=== PATIENT | male | born 1990 | race American Indian/Alaskan Native ===

== ENCOUNTER 2021-11-10 04:53 | Emergency (ER) | payer MEDICAID ==
[2021-11-10] MEDS ORDERED: LORazepam 2 MG/ML VIAL IM PRN (05:09)
[2021-11-10] MEDS ORDERED: HALOPERIDOL LACTATE 5 MG/1 ML INJ IM PRN (05:09)
--- NOTE | 2021-11-10 05:12 | Event Note ---
Date: 11/10/21 EMS documentation not available at time of chart dictation Verbal report received from EMS Medical screening examination note: 31-year-old gentleman with a history of catatonia and psychiatric disease, brought to the hospital by EMS with an EMS articulated complaint of catatonia. EMS reports that patient was on the toilet, awake, moving 4 extremities, but not responding, and that family called because they felt that the patient's psychiatric disease is worsening. EMS reported that family stated "I cannot deal with it anymore." Patient has previously been at [facility], but family did not want this patient to go to [facility]. The patient is awake, moving 4 extremities, and appears disorganized. Patient placed on hold status, trial of Ativan for catatonia, screening laboratory studies ordered, mental health consultation requested. Detailed history and physical to be performed by oncoming ER provider.
[2021-11-10 05:44] LABS: Hematocrit 46.7 % (35.5-45.6); Hemoglobin 15.2 gm/dl (11.8-15.2); Mean Corpuscular HGB Conc 33 % (32-34); Mean Corpuscular Volume 91 fl (84-94); Platelet Count 258 K/mm3 (140-440); Red Blood Count 5.14 M/mm3 (3.65-5.03); Red Cell Distribution Width 15.7 % (13.2-15.2)
[2021-11-10 06:15] LABS: BUN/Creatinine Ratio 20; Blood Urea Nitrogen 20 mg/dL (9-20); Calcium 9.5 mg/dL (8.4-10.2); Hemolysis Index 8
--- NOTE | 2021-11-10 06:20 | Emergency Department Report ---
ED Psych HPI - General Chief Complaint: Altered Mental Status Stated Complaint: CATATONIA, CHRONIC Time Seen by Provider: 11/10/21 06:02 Source: EMS Mode of arrival: Stretcher - History of Present Illness Initial Comments: Chief complaint: Abnormal behavior HPI: History obtained from my colleague's documentation screening note. This is a 31-year-old gentleman with history of catatonia and mental health disorder who was brought to EMS with reported catatonia. EMS reports that patient was on toilet awake moving all 4 extremities but not responding. Family called because they felt that the patient's mental state is worsening. Family member stated, "I cannot deal with it anymore". This gentleman has been previously evaluated and treated at [facility]. Family did not want this patient to return back to [facility] for evaluation. MD Complaint: altered mental status -: unknown Associated Psychiatric Symptoms: racing thoughts, auditory hallucinations History of same: Yes Quality: constant Improves With: none Worsens With: none Treatments Prior to Arrival: other (EMS transfer previous evaluation at outside hospital) - Related Data Allergies Allergy/AdvReac Type Severity Reaction Status Date / Time No Known Allergies Allergy Verified 11/10/21 09:26 ED Review of Systems ROS: Stated complaint: CATATONIA, CHRONIC Other details as noted in HPI Comment: Unobtainable due to pts medical conditions (Altered mental status) ED Past Medical Hx - Past Medical History Previous Medical History?: Yes Hx Psychiatric Treatment: Yes - Surgical History Additional Surgical History: Unable to obtain - Social History Smoking Status: Unknown if ever smoked Substance Use Type: Other (Unable to obtain) ED Physical Exam - General Limitations: Altered Mental Status General appearance: alert, in no apparent distress, other (Poor eye contact, responding to internal stimuli, continuous mumbling, moves all 4 extremities) - Head Head exam: Present: atraumatic, normocephalic - Eye Eye exam: Present: normal appearance - ENT ENT exam: Present: mucous membranes moist - Neck Neck exam: Present: normal inspection, full ROM - Respiratory Respiratory exam: Present: normal lung sounds bilaterally. Absent: respiratory distress, wheezes, rales, rhonchi - Cardiovascular Cardiovascular Exam: Present: regular rate, normal rhythm, normal heart sounds. Absent: systolic murmur, diastolic murmur, rubs, gallop - GI/Abdominal GI/Abdominal exam: Present: soft, normal bowel sounds. Absent: distended, tenderness, guarding, rebound - Rectal Rectal exam: Present: deferred - Extremities Exam Extremities exam: Present: normal inspection - Neurological Exam Neurological exam: Present: altered - Psychiatric Psychiatric exam: Present: other (Responding to internal stimuli, constant mumbling speech) - Skin Skin exam: Present: warm, dry, intact, normal color. Absent: rash ED Course Vital Signs 11/10/21 11/10/21 11/10/21 06:26 09:26 19:59 Temperature 97.5 F L 98.2 F Pulse Rate 107 H 68 68 Respiratory 21 18 18 Rate Blood Pressure 135/85 110/66 [Left] O2 Sat by Pulse 98 97 100 Oximetry 11/10/21 11/11/21 11/11/21 20:00 08:14 13:30 Temperature 98.5 F Pulse Rate 60 Respiratory 18 Rate Blood Pressure 120/83 [Left] O2 Sat by Pulse 100 97 99 Oximetry ED Medical Decision Making - Lab Data Result diagrams: 11/10/21 05:19 11/10/21 05:19 - Medical Decision Making Acute psychosis, patient is medically clear for psychiatric care. 1013 form completed. ED hold order in place. Awaiting treatment recommendations by psych iatric team. CBC chemistry TSH magnesium all within normal limits. Alcohol, acetaminophen, salicylate levels negative. Patient is transferred to [facility] today 11/11/2021 Critical care attestation.: If time is entered above; I have spent that time in minutes in the direct care of this critically ill patient, excluding procedure time. ED Disposition Clinical Impression: Acute psychosis Disposition: [address] [place] [address] Is pt being admited?: Yes Does the pt Need Aspirin: No Condition: Stable
--- NOTE | 2021-11-10 09:23 | Consultation ---
History of Present Illness - Reason for Consult Consult date: 11/10/21 Reason for consult: psychosis - History of Present Psychiatric Illness The patient was seen today. He is responding to internal stimuli. He doesn't acknowledge my presence. He is just staring and pointing as if he's talking to someone. PAST PSYCHIATRIC HISTORY: Unable to assess PAST MEDICAL HISTOtRY: unknown Family Psychiatric History: None reported or documented SOCIAL HISTORY Unable to assess REVIEW OF SYSTEMS unable to assess MENTAL STATUS EXAMINATION unable to assess Assessment (1) Acute Psychosis Treatment Plan 1013 Lorazepam 2mg IM x 1 to r/o catatonia Mirtazepin 7.5mg po qhs Medical: per primary Disposition: recommend acute psychiatric inpatient treatment Will follow. Thanks Case staffed with Dr. Gunter Medications and Allergies Allergies Allergy/AdvReac Type Severity Reaction Status Date / Time No Known Allergies Allergy Verified 11/10/21 05:00 Active Meds: Active Medications Haloperidol Lactate (Haloperidol Lactate 5 Mg/1 Ml Inj) 5 mg IM Q6HR PRN PRN Reason: Agitation Lorazepam (Lorazepam 2 Mg/Ml Vial) 2 mg IM Q4HR PRN PRN Reason: Agitation Mental Status Exam - Vital signs Last Vital Signs Temp Pulse 107 H 11/10/21 06:26 Resp 21 11/10/21 06:26 BP Pulse Ox 98 11/10/21 06:26 Results Result Diagrams: 11/10/21 05:19 11/10/21 05:19 Abnormal lab results 11/10/21 11/10/21 11/10/21 Range/Units 05:19 05:19 05:19 RBC 5.14 H (3.65-5.03) M/mm3 Hct 46.7 H (35.5-45.6) % RDW 15.7 H (13.2-15.2) % Salicylates < 0.3 L (2.8-20.0) mg/dL Acetaminophen 5.0 L (10.0-30.0) ug/mL All other labs normal.
[2021-11-10] MEDS ORDERED: LORazepam 2 MG/ML VIAL IM ONE (09:26)
[2021-11-10] MEDS ORDERED: MIRTAZAPINE 15 MG TAB PO SCH (22:00)
[2021-11-10] MEDS ORDERED: ALBUTEROL 8.5 GM MDI INHALATION IH PRN (23:03)
--- NOTE | 2021-11-10 23:05 | Event Note ---
Date: 11/11/21 Nursing team has asked that I evaluate the patient secondary to cough. Patient had a negative Covid test. He is saturating well on room air. He is in no acute respiratory distress. He is not stridulous. He also has bloodshot eyes. X-ray of the chest is unremarkable. As needed cough medications ordered. Patient protecting airway at this time. Viral syndrome versus Valsalva versus bronchitis Does not appear to have an immediate medical contraindication at this time for psychiatric disposition. CHEST 2 VIEWS INDICATION / CLINICAL INFORMATION: cough. COMPARISON: None available. FINDINGS: SUPPORT DEVICES: None. HEART / MEDIASTINUM: No significant abnormality. LUNGS / PLEURA: No significant pulmonary abnormality. No significant pleural effusion. No pneumothorax. ADDITIONAL FINDINGS: No significant additional findings. IMPRESSION: 1. No acute abnormality of the chest. Signer Name: Kenyon Padilla MD Signed: 11/10/2021 11:22 PM Workstation Name: [id number] Vital Signs 11/10/21 11/10/21 11/10/21 06:26 09:26 19:59 Temperature 97.5 F L 98.2 F Pulse Rate 107 H 68 68 Respiratory 21 18 18 Rate Blood Pressure 135/85 110/66 [Left] O2 Sat by Pulse 98 97 100 Oximetry 11/10/21 20:00 Temperature Pulse Rate Respiratory Rate Blood Pressure [Left] O2 Sat by Pulse 100 Oximetry Lab Results 11/10/21 11/10/21 11/10/21 Range/Units 05:19 05:19 05:19 WBC (4.5-11.0) K/mm3 RBC (3.65-5.03) M/mm3 Hgb (11.8-15.2) gm/dl Hct (35.5-45.6) % MCV (84-94) fl MCH (28-32) pg MCHC (32-34) % RDW (13.2-15.2) % Plt Count (140-440) K/mm3 Sodium 143 (137-145) mmol/L Potassium 4.0 (3.6-5.0) mmol/L Chloride 106.3 (98-107) mmol/L Carbon Dioxide 23 (22-30) mmol/L Anion Gap 18 mmol/L BUN 20 (9-20) mg/dL Creatinine 1.0 (0.8-1.3) mg/dL Estimated GFR > 60 ml/min BUN/Creatinine Ratio 20 % Glucose 99 (75-100) mg/dL Calcium 9.5 (8.4-10.2) mg/dL Magnesium (1.7-2.3) mg/dL TSH 1.840 (0.270-4.200) mlU/mL Salicylates < 0.3 L (2.8-20.0) mg/dL Acetaminophen (10.0-30.0) ug/mL Plasma/Serum Alcohol (0-0.07) % Coronavirus (PCR) (Negative) 11/10/21 11/10/21 11/10/21 Range/Units 05:19 05:19 05:19 WBC 9.7 (4.5-11.0) K/mm3 RBC 5.14 H (3.65-5.03) M/mm3 Hgb 15.2 (11.8-15.2) gm/dl Hct 46.7 H (35.5-45.6) % MCV 91 (84-94) fl MCH 30 (28-32) pg MCHC 33 (32-34) % RDW 15.7 H (13.2-15.2) % Plt Count 258 (140-440) K/mm3 Sodium (137-145) mmol/L Potassium (3.6-5.0) mmol/L Chloride (98-107) mmol/L Carbon Dioxide (22-30) mmol/L Anion Gap mmol/L BUN (9-20) mg/dL Creatinine (0.8-1.3) mg/dL Estimated GFR ml/min BUN/Creatinine Ratio % Glucose (75-100) mg/dL Calcium (8.4-10.2) mg/dL Magnesium (1.7-2.3) mg/dL TSH (0.270-4.200) mlU/mL Salicylates (2.8-20.0) mg/dL Acetaminophen 5.0 L (10.0-30.0) ug/mL Plasma/Serum Alcohol < 0.01 (0-0.07) % Coronavirus (PCR) (Negative) 11/10/21 11/10/21 Range/Units 05:19 10:16 WBC (4.5-11.0) K/mm3 RBC (3.65-5.03) M/mm3 Hgb (11.8-15.2) gm/dl Hct (35.5-45.6) % MCV (84-94) fl MCH (28-32) pg MCHC (32-34) % RDW (13.2-15.2) % Plt Count (140-440) K/mm3 Sodium (137-145) mmol/L Potassium (3.6-5.0) mmol/L Chloride (98-107) mmol/L Carbon Dioxide (22-30) mmol/L Anion Gap mmol/L BUN (9-20) mg/dL Creatinine (0.8-1.3) mg/dL Estimated GFR ml/min BUN/Creatinine Ratio % Glucose (75-100) mg/dL Calcium (8.4-10.2) mg/dL Magnesium 2.20 (1.7-2.3) mg/dL TSH (0.270-4.200) mlU/mL Salicylates (2.8-20.0) mg/dL Acetaminophen (10.0-30.0) ug/mL Plasma/Serum Alcohol (0-0.07) % Coronavirus (PCR) Negative (Negative)
--- NOTE | 2021-11-11 00:27 | XRay Report ---
CHEST 2 VIEWS INDICATION / CLINICAL INFORMATION: cough. COMPARISON: None available. FINDINGS: SUPPORT DEVICES: None. HEART / MEDIASTINUM: No significant abnormality. LUNGS / PLEURA: No significant pulmonary abnormality. No significant pleural effusion. No pneumothora x. ADDITIONAL FINDINGS: No significant additional findings. IMPRESSION: 1. No acute abnormality of the chest. Signer Name: Kenyon Padilla MD Signed: 11/11/2021 12:22 AM Workstation Name: [id number]
[2021-11-11] MEDS ORDERED: BENZONATATE 100 MG CAP PO SCH (06:00)
--- NOTE | 2021-11-11 11:24 | Progress Note ---
Subjective - Reason for Consult Consult date: 11/11/21 Reason for consult: psychosis - Chief Complaint Chief complaint: The patient was seen today. He is more with it today, but still disorganized. The patient says "I'm alright" when asked, but appears to be out of it and preoccupied. He kept his head turned in one direction, staring. The patient appears to be responding to internal stimuli, although he denies hallucinations. He would not engage in the evaluation. He kept staring in one direction shaking his head over and over. I asked him was he feeling depressed or suicidal, the patient would not respond. REVIEW OF SYSTEMS unable to assess MENTAL STATUS EXAMINATION unable to assess Assessment (1) Acute Psychosis Treatment Plan 1013 Lorazepam 2mg IM x 1 to r/o catatonia Mirtazepin 7.5mg po qhs Start Olanzapine 5mg po daily Start Lorazepam 0.5mg po BID Medical: per primary Disposition: recommend acute psychiatric inpatient treatment Will follow. Thanks Case staffed with Dr. Gunter Mental Status Exam - Vital signs Last Vital Signs Temp 98.2 F 11/10/21 19:59 Pulse 68 11/10/21 19:59 Resp 18 11/10/21 19:59 BP 110/66 11/10/21 19:59 Pulse Ox 97 11/11/21 08:14
--- NOTE | 2021-11-11 11:46 | Emergency Department Report ---
Blank Doc - Documentation Documentation: 31-year-old male on 1013 for acute psychosis. UA and UDS collection is still pending P.o. psych meds prescribed by psych Patient awaiting acceptance
[2021-11-11 13:31] VITALS: BP 120/83
[2021-11-11] MEDS ORDERED: LORazepam 0.5 MG TAB PO SCH (22:00)
== END 2021-11-11 15:30 ==
LOC: ED 04:53
DX: F23 Brief psychotic disorder (principal); Z20.822 Contact with and (suspected) exposure to COVID-19
CPT/HCPCS: 36415; 71046; 80048; 83735; 84443; 85027; 96372; 99284; J2060; U0003; 80320; G0480

== ENCOUNTER 2021-12-17 13:28 | Emergency (ER) | payer BC ==
[2021-12-17] MEDS ORDERED: LORazepam 2 MG/ML VIAL IV ONE (15:40)
--- NOTE | 2021-12-17 15:47 | Emergency Department Report ---
HPI - HPI HPI: Room 10 Patient is a 31-year-old male present with a chief complaint of seizure. The patient was reportedly recently discharged from [facility] and upon release he called 911 stating he had just had a seizure. In the ED the patient does not answer questions. The patient will moan with a sternal rub but does not follow commands. Patient has history of catatonia <HEIDI HORN - Last Filed: 12/17/21 19:20> <LJ CHAVARRIA - Last Filed: 12/18/21 17:17> - General Chief Complaint: Psych Time Seen by Provider: 12/17/21 15:32 ED Past Medical Hx - Past Medical History Hx Psychiatric Treatment: Yes Additional medical history: Schizoaffective disorder, Recurrent catatonia - Surgical History Past Surgical History?: No Additional Surgical History: Unable to obtain - Family History Family history: no significant - Social History Smoking Status: Unknown if ever smoked Substance Use Type: Other (Unable to obtain) <HEIDI HORN - Last Filed: 12/17/21 19:20> <LJ CHAVARRIA - Last Filed: 12/18/21 17:17> - Medications Home Medications: Home Medications Medication Instructions Recorded Confirmed Last Taken Type Divalproex Dr [Depakote Dr] 500 mg PO BID 12/01/21 12/01/21 Unknown History risperiDONE [RisperDAL] 2 mg PO BID 12/01/21 12/01/21 Unknown History ED Review of Systems ROS: Stated complaint: PSYCHIATRIC EPISODE Other details as noted in HPI Comment: Unobtainable due to pts medical conditions <HEIDI HORN - Last Filed: 12/17/21 19:20> ROS: Stated complaint: PSYCHIATRIC EPISODE Other details as noted in HPI <LJ CHAVARRIA - Last Filed: 12/18/21 17:17> Physical Exam - Physical Exam Vital Signs: Vital Signs 12/17/21 12/17/21 12/17/21 16:24 16:25 17:37 Temperature 98.0 F 97.8 F Pulse Rate 81 79 Respiratory 17 17 16 Rate Blood Pressure 139/77 126/72 [Left] O2 Sat by Pulse 100 100 97 Oximetry Physical Exam: GENERAL: The patient is well-developed well-nourished male lying on stretcher not responding to verbal stimuli. [] HEENT: Normocephalic. Atraumatic. NECK: Supple. Trachea midline CHEST/LUNGS: Clear to auscultation. There is no respiratory distress noted. HEART/CARDIOVASCULAR: Regular. There is no tachycardia. There is no gallop rub or murmur. ABDOMEN: Abdomen is soft, nontender. Patient has normal bowel sounds. There is no abdominal distention. SKIN: There is no rash. There is no edema. There is no diaphoresis. NEURO: The patient is lying in left lateral decubitus position not responding to verbal stimuli. Upon sternal rub patient moans and localizes but does not speak. MUSCULOSKELETAL: There is no evidence of acute injury. <HEIDI HORN - Last Filed: 12/17/21 19:20> - Physical Exam Vital Signs: Vital Signs 12/17/21 12/17/21 12/17/21 16:24 16:25 17:37 Temperature 98.0 F 97.8 F Pulse Rate 81 79 Respiratory 17 17 16 Rate Blood Pressure 139/77 126/72 [Left] O2 Sat by Pulse 100 100 97 Oximetry <LJ CHAVARRIA - Last Filed: 12/18/21 17:17> ED Course Vital Signs 12/17/21 12/17/21 12/17/21 16:24 16:25 17:37 Temperature 98.0 F 97.8 F Pulse Rate 81 79 Respiratory 17 17 16 Rate Blood Pressure 139/77 126/72 [Left] O2 Sat by Pulse 100 100 97 Oximetry - Reevaluation(s) Reevaluation #1: 12/18/21 17:16 was assessed by psych, recommend OP management , vss no distress no SI or HI <LJ CHAVARRIA - Last Filed: 12/18/21 17:17> ED Medical Decision Making - Lab Data Result diagrams: 12/17/21 16:57 12/17/21 16:57 Laboratory Tests 12/17/21 12/17/21 12/17/21 16:57 16:57 16:57 WBC 6.1 RBC 4.93 Hgb 14.5 Hct 44.8 MCV 91 MCH 29 MCHC 32 RDW 15.5 H Plt Count 319 Lymph % (Auto) 45.6 H [place] % (Auto) 8.6 H Eos % (Auto) 3.0 Baso % (Auto) 1.1 Lymph # (Auto) 2.8 [place] # (Auto) 0.5 Eos # (Auto) 0.2 Baso # (Auto) 0.1 Seg Neutrophils % 41.7 Seg Neutrophils # 2.5 Sodium 143 Potassium 4.3 Chloride 104.1 Carbon Dioxide 24 Anion Gap 19 BUN 10 Creatinine 1.1 Estimated GFR > 60 BUN/Creatinine Ratio 9 Glucose 73 L Calcium 9.4 Urine Color Urine Turbidity Urine pH Ur Specific [place] Urine Protein Urine Glucose (UA) Urine Ketones Urine Blood Urine Nitrite Ur Reducing Substances Urine Bilirubin Urine Ictotest Urine Urobilinogen Ur Leukocyte Esterase Urine WBC (Auto) Urine RBC (Auto) Salicylates < 0.3 L Urine Opiates Screen Urine Methadone Screen Acetaminophen Valproic Acid < 2.8 L Ur Phencyclidine Scrn Ur Amphetamines Screen U Benzodiazepines Scrn Urine Cocaine Screen Plasma/Serum Alcohol 12/17/21 12/17/21 12/17/21 16:57 16:57 17:31 WBC RBC Hgb Hct MCV MCH MCHC RDW Plt Count Lymph % (Auto) [place] % (Auto) Eos % (Auto) Baso % (Auto) Lymph # (Auto) [place] # (Auto) Eos # (Auto) Baso # (Auto) Seg Neutrophils % Seg Neutrophils # Sodium Potassium Chloride Carbon Dioxide Anion Gap BUN Creatinine Estimated GFR BUN/Creatinine Ratio Glucose Calcium Urine Color Yellow Urine Turbidity Clear Urine pH 5.0 Ur Specific [place] 1.021 Urine Protein <15 mg/dl Urine Glucose (UA) Neg Urine Ketones Neg Urine Blood Neg Urine Nitrite Neg Ur Reducing Substances Not Reportable Urine Bilirubin Neg Urine Ictotest Not Reportable Urine Urobilinogen < 2.0 Ur Leukocyte Esterase Neg Urine WBC (Auto) < 1.0 Urine RBC (Auto) < 1.0 Salicylates Urine Opiates Screen Urine Methadone Screen Acetaminophen 5.0 L Valproic Acid Ur Phencyclidine Scrn Ur Amphetamines Screen U Benzodiazepines Scrn Urine Cocaine Screen Plasma/Serum Alcohol < 0.01 12/17/21 17:31 WBC RBC Hgb Hct MCV MCH MCHC RDW Plt Count Lymph % (Auto) [place] % (Auto) Eos % (Auto) Baso % (Auto) Lymph # (Auto) [place] # (Auto) Eos # (Auto) Baso # (Auto) Seg Neutrophils % Seg Neutrophils # Sodium Potassium Chloride Carbon Dioxide Anion Gap BUN Creatinine Estimated GFR BUN/Creatinine Ratio Glucose Calcium Urine Color Urine Turbidity Urine pH Ur Specific [place] Urine Protein Urine Glucose (UA) Urine Ketones Urine Blood Urine Nitrite Ur Reducing Substances Urine Bilirubin Urine Ictotest Urine Urobilinogen Ur Leukocyte Esterase Urine WBC (Auto) Urine RBC (Auto) Salicylates Urine Opiates Screen Negative Urine Methadone Screen Negative Acetaminophen Valproic Acid Ur Phencyclidine Scrn Negative Ur Amphetamines Screen Negative U Benzodiazepines Scrn Negative Urine Cocaine Screen Negative Plasma/Serum Alcohol - Differential Diagnosis Schizoaffective disorder, catatonia, seizure disorder <HEIDI HORN - Last Filed: 12/17/21 19:20> - Lab Data Result diagrams: 12/17/21 16:57 12/17/21 16:57 <LJ CHAVARRIA - Last Filed: 12/18/21 17:17> Critical care attestation.: If time is entered above; I have spent that time in minutes in the direct care of this critically ill patient, excluding procedure time. <HEIDI HORN - Last Filed: 12/17/21 19:20> Critical care attestation.: If time is entered above; I have spent that time in minutes in the direct care of this critically ill patient, excluding procedure time. <LJ CHAVARRIA - Last Filed: 12/18/21 17:17> ED Disposition <HEIDI HORN - Last Filed: 12/17/21 19:20> Is pt being admited?: No Does the pt Need Aspirin: No <LJ CHAVARRIA - Last Filed: 12/18/21 17:17> Clinical Impression: Psychosis Disposition: 01 HOME / SELF CARE / HOMELESS Condition: Stable Additional Instructions: In case of an emergency, please contact the following numbers: [place] Crisis and Access Line: Number: Crisis Text Line: (Text START) Number: [phone] Suicide Prevention Line: Number: Emergency Number: 911 SUBSTANCE ABUSE PROGRAMS: [facility]: Location: [place], [place] Address: [address] [place] [id number] [facility]: Address: [address] [place], [place] [id number] [facility]: Address: [address] [place] [address] [facility]: Address: [address] [place] [address] [facility] Address: [address] [place] [address]. Please contact above numbers to attempt placement into free based program. Medicaid Programs: [facility]: Address: [address] [place] [address] [facility]: Address: [address] [place] [address] Professional and Agency Contacts To help Resolve Crises(16/06) [place] Crisis Line: Suicide Prevention Line: Crisis Text Line: Text START to 778636 Emergency: 911 Outpatient COMMUNITY Behavioral Health Resources: [facility]: [facility] [address] [place], [place] [address] [place]: [facility] [address] [place] [address] [place]: [facility] - [address] [place] [address] Friday thru Friday - 8am - 5pm [place]: [facility] Address: [address] [place] [address] [place]: [facility] Address: [address] [place] [address] Friday thru Friday- 7am-2pm [facility] Address: [address] [place] [address] Friday thru Friday: 8:30AM-5PM [facility] [employer] [facility] [place] goal is to take chronically homeless men and help them overcome their barriers, change them as human beings, making them productive and self- sufficient individuals. Each rumr: turn off the lights! participant is housed at our facility for up to a year while they participate in transitional work (earning $7.40/hr for 30+ hours per week). All participants renounce dependency and remain drug and alcohol free. Personal support, case management, and workforce training is offered throughout the program. We also provide AA/NA Classes, GED classes, support in obtaining a delivery driver/customer service's licenses, help setting up a bank account, and life skill preparation courses. IF A MAN IS COMMITTED TO BEING CLEAN, TO ADDRESSING THE PAST, AND TO WORKING, WE WILL HELP HIM GET A PRECISION LENS GRINDER JOB, TRANSPORTATION AND PERMANENT HOUSING WITHIN A YEAR. [place] [address] [place] [id number] [email or web address] Referrals: PRIMARY CAREMD [Primary Care Provider] - 3-5 Days
[2021-12-17 17:21] LABS: Basophils # (Auto) 0.1 K/mm3 (0.0-0.1); Basophils % (Auto) 1.1 % (0.0-1.8); Eosinophils # (Auto) 0.2 K/mm3 (0.0-0.4); Hematocrit 44.8 % (35.5-45.6); Hemoglobin 14.5 gm/dl (11.8-15.2); Lymphocytes # (Auto) 2.8 K/mm3 (1.2-5.4); Lymphocytes % (Auto) 45.6 % (13.4-35.0); Mean Corpuscular HGB Conc 32 % (32-34); Mean Corpuscular Volume 91 fl (84-94); Monocytes # (Auto) 0.5 K/mm3 (0.0-0.8); Monocytes % (Auto) 8.6 % (0.0-7.3); Platelet Count 319 K/mm3 (140-440); Red Blood Count 4.93 M/mm3 (3.65-5.03); Red Cell Distribution Width 15.5 % (13.2-15.2)
[2021-12-17 17:34] LABS: BUN/Creatinine Ratio 9; Blood Urea Nitrogen 10 mg/dL (9-20); Calcium 9.4 mg/dL (8.4-10.2); Hemolysis Index 8
[2021-12-17 17:37] VITALS: BP 126/72
[2021-12-17 17:48] LABS: RBC,Urine < 1.0 /HPF (0.0-6.0)
[2021-12-17 17:56] LABS: Bilirubin,Urine NEG (Negative); Blood,Urine NEG (Negative); Color,Urine Yellow (Yellow); Protein,Urine <15 mg/dL mg/dL (Negative); Urobilinogen,Urine < 2.0 mg/dL (<2.0)
[2021-12-17 17:57] LABS: WBC,Urine < 1.0 /HPF (0.0-6.0)
[2021-12-17 18:04] LABS: Amphetamine Screen,Urine Negative; Benzodiazepines Screen,Urine Negative; Cocaine Screen,Urine Negative; Methadone Screen,Urine Negative; Opiate Screen,Urine Negative
[2021-12-17 18:18] LABS: Cannabinoid Screen,Urine Positive
[2021-12-17] MEDS ORDERED: VALPROATE SODIUM 500 MG in SODIUM CHLORIDE 0.9% 100 ML IV ONE (19:22)
--- NOTE | 2021-12-18 11:45 | Consultation ---
History of Present Illness - Reason for Consult Consult date: 12/18/21 Reason for consult: mental health evaluation - History of Present Psychiatric Illness The patient was seen this morning. He is calm, alert and oriented x2. The patient states he is doing well. He states he came because he was having a seizure. the patient denies any current suicidal/homicidal ideation and denies hallucinations. PAST PSYCHIATRIC HISTORY: Unable to assess PAST MEDICAL HISTORY: unknown Family Psychiatric History: None reported or documented SOCIAL HISTORY Unable to assess REVIEW OF SYSTEMS unable to assess MENTAL STATUS EXAMINATION unable to assess Assessment (1) Hx of Schizophrenia Treatment Plan d/c 1013 Continue Home meds Medical: per primary Disposition: Do not recommend acute psychiatric inpatient treatment The patient to follow up with outpatient psych in 7 to 14 days upon discharge. The patient verbalized understanding if SI/HI or any fear of endangerment arise he is to seek immediate assistance. The refinery superintendent is to further discuss safety plan and give all necessary resources Will sign off. Thanks Case staffed with Dr. Gunter Medications and Allergies Allergies Allergy/AdvReac Type Severity Reaction Status Date / Time No Known Allergies Allergy Verified 11/10/21 09:26 Home Medications Medication Instructions Recorded Confirmed Last Taken Type Divalproex Dr [Socrates Martin] 500 mg PO BID 12/01/21 12/01/21 Unknown History risperiDONE [RisperDAL] 2 mg PO BID 12/01/21 12/01/21 Unknown History Mental Status Exam - Vital signs Last Vital Signs Temp 97.8 F 12/17/21 17:37 Pulse 79 12/17/21 17:37 Resp 16 12/17/21 17:37 BP 126/72 12/17/21 17:37 Pulse Ox 97 12/17/21 17:37 Results Result Diagrams: 12/17/21 16:57 12/17/21 16:57 Abnormal lab results 12/17/21 12/17/21 12/17/21 Range/Units 16:57 16:57 16:57 RDW 15.5 H (13.2-15.2) % Lymph % (Auto) 45.6 H (13.4-35.0) % [place] % (Auto) 8.6 H (0.0-7.3) % Glucose 73 L (75-100) mg/dL Salicylates < 0.3 L (2.8-20.0) mg/dL Acetaminophen (10.0-30.0) ug/mL Valproic Acid < 2.8 L (50-100) ug/mL 12/17/21 Range/Units 16:57 RDW (13.2-15.2) % Lymph % (Auto) (13.4-35.0) % [place] % (Auto) (0.0-7.3) % Glucose (75-100) mg/dL Salicylates (2.8-20.0) mg/dL Acetaminophen 5.0 L (10.0-30.0) ug/mL Valproic Acid (50-100) ug/mL All other labs normal.
== END 2021-12-18 18:30 | disposition home or self-care (01) ==
LOC: ED 13:28
DX: F29 Unspecified psychosis not due to a substance or known physiological condition (principal); F25.9 Schizoaffective disorder, unspecified
CPT/HCPCS: 36415; 80048; 80164; 80307; 81001; 85025; 96374; 99284; J2060; 80320; 96361; G0480